=== PATIENT | male | born 1975 | race Two or more races ===

== ENCOUNTER 2017-07-22 11:19 | Emergency (ER) | payer MEDICAID ==
--- NOTE | 2017-07-22 11:46 | EDPHY ---
H & P Time Seen by Provider: 07/22/17 11:39 HPI/ROS: CHIEF COMPLAINT: Left eyelid swelling HISTORY OF PRESENT ILLNESS: Noticed some irritation on his upper lid yesterday , washed his face today, increasing upper eyelid swelling with redness and some pain. No discharge in the eye and no recent trauma or injury and no decrease in vision. REVIEW OF SYSTEMS: No fever or chills and no diplopia PAST MEDICAL HISTORY: Asthma General Appearance: Alert, no distress. Looks nontoxic. Visual acuity: Patient states normal, nursing notes reviewed. Lids and Lashes: Upper left eyelid edema and erythema with slight tenderness to palpation but no vesicles. Conjunctivae: Not injected, no exudate. Sclera: No subconjunctival hemorrhage, no icterus. Pupils: Equal and round, normally reactive. Corneas: No foreign body on surface of cornea. Anterior chamber: normal, no hyphema or hypopyon. External: Patient does not have proptosis, extraocular motion intact. Slight periorbital on left upper eyelid swelling. Emergency Department course/MDM: Possible periorbital cellulitis. Also considered including but not limited to allergic reaction or stye or conjunctivitis. Cold compresses and oral cephalexin. Does not have evidence of orbital or ocular involvement or retro-orbital infection. Smoking Status: Never smoked Constitutional: Initial Vital Signs Temperature (C) 36.6 C 07/22/17 11:24 Heart Rate 75 07/22/17 11:24 Respiratory Rate 16 07/22/17 11:24 Blood Pressure 134/69 H 07/22/17 11:24 O2 Sat (%) 95 07/22/17 11:24 O2 Delivery Mode Room Air Allergies/Adverse Reactions: No Known Allergies Allergy (Unverified 07/22/17 11:23) Home Medications: Medication Instructions Recorded Albuterol 07/22/17 Cephalexin [Keflex] 500 mg PO QID #28 cap 07/22/17 Claritin 07/22/17 MDM/Departure - Depart Disposition: Home, Routine, Self-Care Clinical Impression: Periorbital cellulitis of left eye Condition: Good Instructions: Cephalexin (By mouth) Additional Instructions: Cold compresses to the left eyelid as we discussed. Return for any trouble with vision. Return for eye pain or worsening swelling or fever. Prescriptions: Cephalexin [Keflex] 500 mg PO QID #28 cap Referrals: Aurelio Shelley MD [Medical Doctor] - 2-3 days, if not improved
[2017-07-22 11:56] VITALS: BP 135/68; PULSE 70; RESP 18; TEMP 98.6; O2SAT 93
== END 2017-07-22 11:58 | disposition home or self-care (01) ==
DX: L03.213 Periorbital cellulitis (principal); J45.909 Unspecified asthma, uncomplicated

== ENCOUNTER 2017-07-25 20:44 | Emergency (ER) | payer MEDICAID ==
[2017-07-25 20:49] VITALS: BP 109/78
--- NOTE | 2017-07-25 20:58 | EDPHY ---
H & P Stated Complaint: continued left eye swelling Source: Patient, Family () Exam Limitations: No limitations - Personal History Current Tetanus/Diphtheria Vaccine: Yes Current Tetanus Diphtheria and Acellular Pertussis (TDAP): Yes - Medical/Surgical History Hx Asthma: Yes Hx Chronic Respiratory Disease: No Hx Diabetes: No Hx Cardiac Disease: No Hx Renal Disease: No Hx Cirrhosis: No Hx Alcoholism: No Hx HIV/AIDS: No Hx Splenectomy or Spleen Trauma: No Other PMH: asthma - Social History Smoking Status: Never smoked Time Seen by Provider: 07/25/17 20:58 HPI/ROS: HPI: This is a 41-year-old male who presents with Chief Complaint: continued left eye swelling Location: Left eye Quality: Redness Duration: Several days Signs and Symptoms: no fever, no nausea, no vomiting, no photophobia, no noise sensitivity, no neck stiffness, no ear pain, no tinnitus, no nasal congestion, no sinus pressure, no weakness, no radiation, no aura, no vision changes Timing: Mildly improved Severity: [id number] Context: Patient presents to the emergency room for the 2nd time with complaints of left upper eyelid redness and swelling. He denies any vision changes/ocular discharge/matting of his eyelashes/visual floaters/foreign body sensation. Patient was seen in the emergency room on 07/22/2017 and diagnosed with early signs of periorbital cellulitis; placed on Keflex 4 times a day which patient has been compliant. Patient reports that it has been mildly improved. Admits that he has not been applying cool compresses or using eyedrops or eye lubricant. Modifying Factors: Keflex Comment: ROS: see HPI Constitutional: No fever, no chills, no weight loss Eyes: No blurred vision Respiratory: No shortness of breath, no cough Cardiovascular: No chest pain, no palpitations Gastrointestinal: No nausea, no vomiting, no diarrhea, no hematemesis, no blood in stool Genitourinary: No dysuria, no blood in urine Extremities: No myalgias, no edema Neurologic: No weakness, no numbness Skin: No rashes, no petechiae Hematologic: No bruising, no bleeding MEDICAL/SURGICAL/SOCIAL HISTORY: Medical history: Asthma. Surgical history: Denies Social history: . CONSTITUTIONAL: Extremely well-appearing polite and cooperative adult male, awake and alert, no obvious distress Visual Acuity: noted from Nurse's notes. Pupils: equal round and reactive to light. EOMI. Lids: Left mild edema and erythema Skin: no proptosis, no periorbital erythema or swelling, no vesicles Conjunctivae: not injected, no discharge Anterior chamber: normal, no hyphema or hypopyon HENT: Atraumatic and normocephalic, Tympanic membranes clear. Oropharynx clear, no exudate and moist pink mucosa. Airway patent. No lymphadenopathy. No meningismus. Cardiovascular: Normal S1/S2, regular rate, regular rhythm, without murmur rub or gallop. PULMONARY/CHEST: Symmetrical and nontender. Clear to auscultation bilaterally. Good air movement. No accessory muscle usage. ABDOMEN: Soft, nondistended, nontender, no rebound, no guarding, no peritoneal signs, no masses or organomegaly. No CVAT. EXTREMITIES: 2/2 pulses, strength 5/5, no deformities, no clubbing, no cyanosis or edema. NEUROLOGICAL: no focal neuro deficits. GCS 15. SKIN: Warm and dry, no erythema. no rash. Good capillary refill. (Dorita Romeo) Constitutional: Initial Vital Signs Temperature (C) 36.8 C 07/25/17 20:48 Heart Rate 94 07/25/17 20:48 Respiratory Rate 18 07/25/17 20:48 Blood Pressure 109/78 07/25/17 20:48 O2 Sat (%) 96 07/25/17 20:48 O2 Delivery Mode Room Air Allergies/Adverse Reactions: No Known Allergies Allergy (Unverified 07/22/17 11:23) Home Medications: Medication Instructions Recorded Albuterol 07/22/17 Cephalexin [Keflex] 500 mg PO QID #28 cap 07/22/17 Claritin 07/22/17 Clindamycin HCl [Clindamycin] 300 mg PO TID #21 cap 07/25/17 Medical Decision Making ED Course/Re-evaluation: Symptoms are minimal. Change antibiotic to clindamycin. No signs of periorbital cellulitis/ocular involvement/retrobulbar infection This patient was seen under the supervision of my secondary supervising physician. I evaluated care for this patient independently. (Dorita Romeo) The patient was evaluated and managed by the physician psychology assistant. I have reviewed this chart and I agree with the findings and plan of care as documented , as indicated by my signature. I am the secondary supervising physician. ( Kira Steward) Differential Diagnosis: Differential diagnosis includes but is not limited to conjunctivitis, stye, periorbital cellulitis, retrobulbar infection. (Dorita Romeo) - Data Points Medications Given: Discontinued Medications Clindamycin (Clindamycin) 300 mg PO EDNOW ONE PRN Reason: Protocol Stop: 07/25/17 21:05 Last Admin: 07/25/17 21:14 Dose: 300 mg Departure - Departure Disposition: Home, Routine, Self-Care Clinical Impression: Infection of eyelid Condition: Good Instructions: Clindamycin (By mouth), Periorbital Cellulitis in Adults (ED) Additional Instructions: Use lubricant drops frequently to prevent eye dryness. Apply cool compress for 30 minutes at a time; 2-3 times per day for the next 1- 2 days. Return to the emergency room in 72 hr if symptoms have not improved or sooner if they are worsening. Referrals: [facility],. [Clinic] - As per Instructions Júnior Fam MD [Medical Doctor] - 5-7 days, call for appt. Prescriptions: Clindamycin HCl [Clindamycin] 300 mg PO TID #21 cap
[2017-07-25] MEDS ORDERED: CLINDAMYCIN 150 MG CAP PO ONE (21:04)
== END 2017-07-25 21:10 | disposition home or self-care (01) ==
DX: H01.9 Unspecified inflammation of eyelid (principal); J45.909 Unspecified asthma, uncomplicated

== ENCOUNTER 2017-08-22 21:12 | Emergency (ER) | payer MEDICAID ==
[2017-08-22 21:19] VITALS: BP 146/83
--- NOTE | 2017-08-22 21:39 | EDPHY ---
H & P Stated Complaint: L EYE INFECTION Source: Family () Exam Limitations: No limitations - Personal History Current Tetanus/Diphtheria Vaccine: Unsure Current Tetanus Diphtheria and Acellular Pertussis (TDAP): Unsure - Medical/Surgical History Hx Asthma: Yes Hx Chronic Respiratory Disease: No Hx Diabetes: No Hx Cardiac Disease: No Hx Renal Disease: No Hx Cirrhosis: No Hx Alcoholism: No Hx HIV/AIDS: No Hx Splenectomy or Spleen Trauma: No Other PMH: asthma - Social History Smoking Status: Never smoked Time Seen by Provider: 08/22/17 21:38 HPI/ROS: HPI: This is a 41-year-old male who presents with Chief Complaint: Left upper eyelid swelling Location: Left upper eyelid Quality: Swelling Duration: 24 hr Signs and Symptoms: no fever, no nausea, no vomiting, no photophobia, no noise sensitivity, no neck stiffness, no ear pain, no tinnitus, no nasal congestion, no sinus pressure, no weakness, no radiation, no aura Timing: Gradually worsening Severity: Mild Context: Patient presents to the emergency room with complaints left upper eyelid swelling over the last 24 hr. Notes some mild redness and discomfort. Denies any vision changes/aura/ocular discharge/eyelash matting/foreign body sensation. Patient reports that his vision appears to be at baseline. Denies any history of diabetes mellitus. He reports that last time he was seen he was given Keflex to start but that did not improve his symptoms. He then was seen by me several days later and given clindamycin that completely resolved his symptoms. He did not follow up with primary care provider per request. Modifying Factors: None Comment: ROS: see HPI Constitutional: No fever, no chills, no weight loss Eyes: No blurred vision Respiratory: No shortness of breath, no cough Cardiovascular: No chest pain, no palpitations Gastrointestinal: No nausea, no vomiting, no diarrhea, no hematemesis, no blood in stool Genitourinary: No dysuria, no blood in urine Extremities: No myalgias, no edema Neurologic: No weakness, no numbness Skin: No rashes, no petechiae Hematologic: No bruising, no bleeding MEDICAL/SURGICAL/SOCIAL HISTORY: Medical history: Asthma Surgical history: Denies Social history: . Family history noncontributory. General appearance: Extremely pleasant well-developed and well-nourished male, awake and alert, nontoxic in appearance. Visual Acuity: Right 20/40, left 20/30, both 20/25 Pupils: equal round and reactive to light. EOMI. Lids: Mild left upper eyelid edema, redness. Skin: no proptosis, no periorbital erythema or swelling, no vesicles Conjunctivae: not injected, no discharge Cornea: exam with fluorescein shows shows no uptake Anterior chamber: normal, no hyphema or hypopyon (Dorita Romeo) Constitutional: Initial Vital Signs Temperature (C) 36.9 C 08/22/17 21:16 Heart Rate 71 08/22/17 21:16 Respiratory Rate 18 08/22/17 21:16 Blood Pressure 146/83 H 08/22/17 21:16 O2 Sat (%) 96 08/22/17 21:16 O2 Delivery Mode Room Air Allergies/Adverse Reactions: No Known Allergies Allergy (Unverified 08/22/17 21:18) Home Medications: Medication Instructions Recorded Albuterol 07/22/17 Cephalexin [Keflex] 500 mg PO QID #28 cap 07/22/17 Claritin 07/22/17 Clindamycin HCl [Clindamycin] 300 mg PO TID #21 cap 07/25/17 Clindamycin 150 mg PO Q8 #21 cap 08/22/17 Medical Decision Making ED Course/Re-evaluation: No signs of periorbital cellulitis/facial cellulitis/abscess/conjunctivitis/ corneal abrasion Patient given clindamycin per request as it worked up before. Advised to follow up with primary care provider and supportive care This patient was seen under the supervision of my secondary supervising physician. I evaluated care for this patient independently. (Dorita Romeo) Differential Diagnosis: Differential diagnosis includes but is not limited to external hordeolum, cellulitis, abscess. (Dorita Romeo) Other Provider: The patient was evaluated and managed by the Physician Trade Manager. My co- signature indicates that I have reviewed this chart and I agree with the findings and plan of care as documented. I am the secondary supervising physician. (Esperanza Fowler) - Data Points Medications Given: Discontinued Medications Clindamycin (Clindamycin) 150 mg PO EDNOW ONE PRN Reason: Protocol Stop: 08/22/17 21:41 Last Admin: 08/22/17 21:46 Dose: 150 mg Departure - Departure Disposition: Home, Routine, Self-Care Clinical Impression: Deyanira external Condition: Good Instructions: Deyanira (ED) Additional Instructions: Please wash hands before touching your eyelids. Apply cool compresses several times a day to decrease inflammation. Take clindamycin every 8 hr x7 days. Follow-up with primary care provider as this appears to be recurrent problem. Eye Complaint: Return to the Emergency Department for any increase in eye pain, redness, swelling, discharge or any worsening of your vision. Referrals: JUAN F PHELAN [Other] - As per Instructions Prescriptions: Clindamycin 150 mg PO Q8 #21 cap
[2017-08-22] MEDS ORDERED: CLINDAMYCIN 150 MG CAP PO ONE (21:40)
== END 2017-08-22 21:49 | disposition home or self-care (01) ==
DX: H00.014 Hordeolum externum left upper eyelid (principal); J45.909 Unspecified asthma, uncomplicated

== ENCOUNTER 2017-08-25 20:40 | Emergency (ER) | payer MEDICAID ==
--- NOTE | 2017-08-25 20:57 | CPEKG ---
Heart Rate: 82 RR Interval: 732 P-R Interval: 164 QRSD Interval: 84 QT Interval: 356 QTC Interval: 416 P Frederick: 51 QRS Frederick: 65 T Wave Frederick: 34 EKG Severity - NORMAL ECG - EKG Impression: SINUS RHYTHM Electronically Signed By: Kira Steward 25-Aug-2017 22:19:50
--- NOTE | 2017-08-25 21:11 | EDPHY ---
H & P Stated Complaint: CP for 5 hrs Time Seen by Provider: 08/25/17 21:11 HPI/ROS: CHIEF COMPLAINT: Chest pain HISTORY OF PRESENT ILLNESS: This is a 41-year-old male with a history of asthma who presents with 4 hr of left-sided chest pain. He describes it as a sharp pain that is constant. It is slightly worse with deep breathing but in general is not changed by exertion or change of position. He has had no chest trauma. Pain came on while he was sitting at his desk. It was not associated with diaphoresis, shortness of breath, or nausea and the pain does not radiate. He had a similar episode a few years ago and was told that it was due to"gas" . He had his cholesterol checked about 3 months ago and was told was normal. He does not use tobacco products. He has a family history of hyperlipidemia/CAD in his father who has had repeated angioplasty since his mid 50s. REVIEW OF SYSTEMS: A ten point review of systems was performed and is negative with the exception of the items mentioned in the HPI. Past medical history: Asthma Family history: Positive for coronary artery disease in his father and he also believes in his mother. Also positive for hyperlipidemia. Social history: He lives with his . He does not use tobacco products. He is a student. General Appearance: Alert. Vital signs reviewed. Eyes: Pupils equal and round, no conjunctival injection, no discharge. Anicteric. ENT, Mouth: Mucous membranes are moist, no oropharyngeal erythema or edema. Neck: No lymphadenopathy, supple. Respiratory: Lungs are clear to auscultation; no wheezes, rales, or rhonchi. Cardiovascular: Regular rate and rhythm; no murmur, rub, or gallop. Gastrointestinal: Abdomen is soft and nontender, no masses or organomegaly, bowel sounds normal. Skin: Warm and dry, no rashes on exposed skin, normal color. Back: Nontender to palpation over the thoracolumbar spine. No CVAT. Extremities: No lower extremity edema, no calf tenderness or swelling. Neurological: Alert and oriented. Moving all four extremities easily and equally. Psychiatric: Normal affect. - Personal History Current Tetanus/Diphtheria Vaccine: Unsure Current Tetanus Diphtheria and Acellular Pertussis (TDAP): Unsure - Medical/Surgical History Hx Asthma: Yes Hx Chronic Respiratory Disease: No Hx Diabetes: No Hx Cardiac Disease: No Hx Renal Disease: No Hx Cirrhosis: No Hx Alcoholism: No Hx HIV/AIDS: No Hx Splenectomy or Spleen Trauma: No Other PMH: asthma - Social History Smoking Status: Never smoked Constitutional: Initial Vital Signs Temperature (C) 36.7 C 08/25/17 20:42 Heart Rate 82 08/25/17 20:42 Respiratory Rate 16 08/25/17 20:42 Blood Pressure 118/77 08/25/17 20:42 O2 Sat (%) 95 08/25/17 20:42 O2 Delivery Mode Room Air Allergies/Adverse Reactions: No Known Allergies Allergy (Unverified 08/22/17 21:18) Home Medications: Medication Instructions Recorded Albuterol 07/22/17 Cephalexin [Keflex] 500 mg PO QID #28 cap 07/22/17 Claritin 07/22/17 Clindamycin HCl [Clindamycin] 300 mg PO TID #21 cap 07/25/17 Clindamycin 150 mg PO Q8 #21 cap 08/22/17 Clindamycin 150 mg PO Q8 #20 cap 08/25/17 Medical Decision Making - Diagnostics EKG Interpretation: 12 lead EKG is interpreted in Trace master View by emergency department physician. No acute ischemic changes. ED Course/Re-evaluation: 41-year-old male with left-sided chest pain, sharp and nonradiating. He has family history of early coronary artery disease. HEART score is 2, low probability of major cardiac event within 6 weeks. Patient was re-evaluated at 10:15 p.m.. He is resting comfortably. Labs pending. I reviewed his chest x-ray. No acute pulmonary disease. D dimer WNL, PE unlikely. Based upon his HEART score I am not recommending overnight hospitalization. I do recommend close follow up by his PCP at [facility] and have provided him with copy of EKG and labs. We reviewed danger signs that should prompt him to be immediately re-evaluated. He and his are comfortable returning home. Patient notes that he has had recurrent swelling of his left eyelid for which he has been treated with clindamycin. In review of his records I see the was given clindamycin a month ago. He tells me that he had good results with this he was seen again on the of this month for the same complaint and diagnosed with stye. He was given a prescription for clindamycin 150 mg p.o. three times daily. In the past he took 300 mg p.o. Three times daily so he has started doubling up on antibiotic after he noticed that the lower dose did not seem to be as effective. He has asked for a prescription so that he does not run out of the medication and I have agreed to provide this. I recommended that he follow up with an educational administrator. His insurance is through [facility]. Differential Diagnosis: Chest pain including but not limited to myocardial ischemia, pulmonary embolus, chest wall pain, pleural inflammation and pulmonary infectious causes. - Data Points Laboratory Results: Laboratory Results 08/25/17 21:00 08/25/17 21:00 Medications Given: Discontinued Medications Aspirin (Aspirin) 324 mg PO EDNOW ONE Stop: 08/25/17 21:36 Last Admin: 08/25/17 21:40 Dose: 324 mg Departure - Departure Disposition: Home, Routine, Self-Care Clinical Impression: Chest pain Qualifiers: Chest pain type: other chest pain Qualified Code(s): R07.89 - Other chest pain ; R07.8 - Other chest pain Condition: Good Instructions: Chest Pain (ED) Additional Instructions: Try ibuprofen 400 mg every 8 hr with food. This might help with the chest pain you are experiencing. Please follow up with her primary care physician early next week. Take the EKG in the lab results with you. Finish out the antibiotics that you are taking for your eyelid swelling. I recommend that you follow up with an educational administrator at [facility] for this recurrent problem. Referrals: JUAN F PHELAN [Other] - As per Instructions Prescriptions: Clindamycin 150 mg PO Q8 #20 cap
[2017-08-25] MEDS ORDERED: ASPIRIN 81 MG CHEWABLE TAB PO ONE (21:35)
[2017-08-25 22:04] LABS: PLATELET COUNT 263 10^3/uL (150-400)
[2017-08-25 22:57] VITALS: BP 118/72
== END 2017-08-25 23:07 | disposition home or self-care (01) ==
DX: R07.89 Other chest pain (principal); J45.909 Unspecified asthma, uncomplicated